=== PATIENT | female | born 1935 | race Caucasian/White ===

== ENCOUNTER 2020-01-13 12:12 | Emergency (ER) | payer OTHER ==
[~2020-01-13] VITALS: Ht 167.6 cm; Wt 59.5 kg
[~2020-01-13 12:12] MED LIST: AMLODIPINE BESYL5 M1 PO; ASPIRIN325 PO; ATENOLOL 100MG100 M2 PO; ATENOLOL 50MG T50 MG PO; ATIVAN0.5 MG PO; BISACODYL SUPP10 MG RECTAL; CATAPRES-TTS 10.1 MG; COLACE100 MG; DIVALPROEX SOD250 M3 PO; FLOMAX0.4 MG PO; GLUCOPHAGE1000 MG PO; GLUCOSAMINE-CH1 EA33 PO; GLYBURIDE 5 MG T5 M1 PO; HYDROXYZINE HCL25 M2 PO; IBUPROFEN 200200 M1; K-DUR10 MEQ PO; KEFLEX500 MG PO; KEPPRA 500 MG500 M1 PO; LASIX 20 MG TAB20 MG PO; LEVAQUIN 500 M500 M2 PO; MAG-OXIDE400 MG PO; MELATONIN3 MG; MELATONIN5 M1 PO; MIRALAX17 GM PO; NIFEDIPINE ER60 M1 PO; NORTRIPTYLINE H25 M3 PO; ONE-A-DAY WOMENS PO; PEPCID20 MG; REQUIP 0.25 M0.25 MG PO; TUMS; TUMS PO; ULTRAM 50MG TAB50 MG PO; VITAMIN D1000 UNI1 PO; VITCB500GO PO; ZOCOR40 MG PO
[2020-01-13] MEDS ORDERED: ATIVAN0.5 M1 PO (12:33)
[2020-01-13] MEDS ORDERED: CARVEDILOL12.5 MG PO (12:34)
[2020-01-13] MEDS ORDERED: BUSPIRONE HCL5 GM PO (12:34)
[2020-01-13] MEDS ORDERED: COZAAR 25 MG TA25 M1 PO (12:35)
[2020-01-13] MEDS ORDERED: HYDRALAZINE HC100 MG PO (12:35)
[2020-01-13] MEDS ORDERED: NIFEDIPINE ER90 M1 PO (12:36)
[2020-01-13] MEDS ORDERED: OMEPRAZOLE 20 M20 M1 PO (12:36)
[2020-01-13] MEDS ORDERED: REMERON SOLTAB45 MG PO (12:36)
[2020-01-13] MEDS ORDERED: EFFER-K 10 MEQ10 ME1 PO (12:37)
[2020-01-13] MEDS ORDERED: RISPERDAL0.5 MG PO (12:38)
[2020-01-13 13:13] LABS: URINE BILIRUBIN NEGATIVE (Negative); URINE BLOOD NEGATIVE (Negative); URINE CLARITY CLEAR; URINE COLOR YELLOW; URINE GLUCOSE-RANDOM NEGATIVE (Negative); URINE KETONES NEGATIVE (Negative); URINE LEUKOCYTES-REFLEX TRACE (Negative); URINE NITRITE-REFLEX NEGATIVE (Negative); URINE PROTEIN TRACE (Negative); URINE SPECIFIC GRAVITY 1.015 (1.005-1.030); URINE UROBILINOGEN 0.2 E.U./dl (0.2-1.0)
[2020-01-13 13:15] LABS: SQUAMOUS 4-10 Moderate /LPF (0-3); URINE RBC 0-2 Rare /HPF (0-2); URINE WBC-REFLEX 0-5 Rare /HPF (0-5)
[2020-01-13 13:16] LABS: BACTERIA-REFLEX 1-9 Few /HPF (None Seen); CASTS None Seen /LPF (None Seen); CRYSTALS None Seen /LPF (None Seen); MUCUS 0-3 Light strn/LPF (None Seen)
[2020-01-13 13:31] LABS: ABSOLUTE EOSINOPHILS 0.1 thou/uL (0.0-0.7); ABSOLUTE LYMPHOCYTES 1.5 thou/uL (0.8-5.3); ABSOLUTE MONOCYTES 1.2 thou/uL (0.0-1.2); ABSOLUTE NEUTROPHILS 7.2 thou/uL (1.6-8.1); BASOPHILS 0.5 %; EOSINOPHILS 1.3 %; HEMATOCRIT 31.6 % (37.0-47.0); HEMOGLOBIN 10.9 gm/dL (12.0-15.0); LYMPHOCYTES 15.1 %; MCH 32.8 pg (26.0-34.0); MCHC 34.6 g/dL (28.0-37.0); MCV 94.8 fL (80.0-100.0); MONOCYTES 11.7 %; MPV 6.8 fl. (7.2-11.1); NUCLEATED RBCS 0 /100WBC; PLATELET COUNT* 331 thou/uL (150-400); POLYS 71.4 %; RBC 3.33 mil/uL (4.20-5.00); RDW-CV 13.5 % (10.5-14.5)
[2020-01-13 13:38] LABS: CALCIUM 9.1 mg/dL (8.5-10.1); CREATININE 1.4 mg/dL (0.6-1.3); POTASSIUM 3.2 mmol/L (3.5-5.1)
[2020-01-13 13:43] LABS: ALBUMIN 3.2 g/dL (3.4-5.0); TOTAL BILIRUBIN 0.3 mg/dL (<0.1-1.0); TOTAL PROTEIN 6.9 g/dL (6.4-8.2)
[2020-01-13 17:36] VITALS: BP 118/40
== END 2020-01-13 17:36 | disposition home or self-care (01) ==
LOC: M.ERS 12:12
PROVIDERS: Personal Emergency Response Attendant
DX: I95.9 Hypotension, unspecified (principal); F03.90 Unspecified dementia, unspecified severity, without behavioral disturbance, psychotic disturbance, mood disturbance, and anxiety; E11.9 Type 2 diabetes mellitus without complications; I10 Essential (primary) hypertension; Z90.49 Acquired absence of other specified parts of digestive tract; Z90.710 Acquired absence of both cervix and uterus; Z88.8 Allergy status to other drugs, medicaments and biological substances; W18.39XA Other fall on same level, initial encounter; Y93.89 Activity, other specified; Y92.128 Other place in nursing home as the place of occurrence of the external cause; Y99.8 Other external cause status